=== PATIENT | female | born 1970 | race Caucasian/White ===

== ENCOUNTER 2018-05-10 09:46 | Emergency (ER) | payer MEDICAID ==
[~2018-05-10] VITALS: Ht 177.8 cm; Wt 77.6 kg
[~2018-05-10 09:46] MED LIST: ATIVAN1 MG PO; BUSPAR 5 MG TABL5 M1 PO; CLARITIN10 MG PO; CLONAZEPAM 1 MG1 M1; CLONAZEPAM 1 MG1 M1 PO; FENTANYL PATCH75 MCG TP; HYDROCORTISONE3011 TP; KEFLEX500 MG PO; MORPHINE SULFAT10 M1 IJ; MORPHINE SULFAT15 M1 PO; NASONEX17 GM NASAL; NORCO 5-325 TA1 EACH PO; TIZANIDINE HCL2 M1 PO; TRILEPTAL 300300 MG PO; VALIUM2 MG PO; ZANAFLEX2 M2 PO
[2018-05-10] MEDS ORDERED: NORCO 5-325 TA1 EACH PO (10:04)
[2018-05-10] MEDS ORDERED: NUCYNTA75 MG PO (10:16)
[2018-05-10] MEDS ORDERED: TOPROL XL25 MG PO (10:17)
[2018-05-10 10:26] LABS: URINE BILIRUBIN NEGATIVE (Negative); URINE BLOOD NEGATIVE (Negative); URINE CLARITY CLEAR; URINE COLOR YELLOW; URINE GLUCOSE-RANDOM* NEGATIVE (Negative); URINE KETONES NEGATIVE (Negative); URINE LEUKOCYTES-REFLEX NEGATIVE (Negative); URINE NITRITE-REFLEX NEGATIVE (Negative); URINE PROTEIN (DIPSTICK) NEGATIVE (Negative); URINE SPECIFIC GRAVITY 1.015 (1.005-1.035); URINE UROBILINOGEN 0.2 E.U./dl (0.2-1.0)
[2018-05-10 11:09] VITALS: BP 129/81
== END 2018-05-10 11:09 | disposition home or self-care (01) ==
LOC: ER 09:46
PROVIDERS: Emergency Medicine
DX: G62.9 Polyneuropathy, unspecified (principal); F41.9 Anxiety disorder, unspecified; I10 Essential (primary) hypertension; Z90.89 Acquired absence of other organs

== ENCOUNTER 2018-08-04 18:41 | Emergency (ER) | payer MEDICAID ==
[~2018-08-04] VITALS: Ht 177.8 cm; Wt 133.8 kg
[~2018-08-04 18:41] MED LIST changes: +NUCYNTA75 MG PO; +TOPROL XL25 MG PO
[2018-08-04 20:38] VITALS: BP 171/97
== END 2018-08-04 20:39 | disposition home or self-care (01) ==
LOC: ER 18:41
DX: G90.521 Complex regional pain syndrome I of right lower limb (principal); M79.671 Pain in right foot; G62.9 Polyneuropathy, unspecified; Z98.890 Other specified postprocedural states

== ENCOUNTER 2018-08-30 11:44 | Emergency (ER) | payer MEDICAID ==
[~2018-08-30] VITALS: Ht 177.8 cm; Wt 90.7 kg
[2018-08-30 11:55] VITALS: BP 116/86
[2018-08-30] MEDS ORDERED: NORCO 10-325 T1 EACH PO (12:38)
== END 2018-08-30 12:43 | disposition home or self-care (01) ==
LOC: ER 11:44
DX: G89.29 Other chronic pain (principal); M79.671 Pain in right foot; M79.672 Pain in left foot; G62.9 Polyneuropathy, unspecified; F41.9 Anxiety disorder, unspecified; Z98.890 Other specified postprocedural states

== ENCOUNTER 2018-11-15 22:09 | Emergency (ER) | payer MEDICAID ==
[~2018-11-15] VITALS: Ht 177.8 cm; Wt 116.1 kg
[~2018-11-15 22:09] MED LIST changes: +NORCO 10-325 T1 EACH PO
[2018-11-15] MEDS ORDERED: MOBIC15 MG PO (22:54)
[2018-11-15 23:12] VITALS: BP 107/72
== END 2018-11-15 23:15 | disposition home or self-care (01) ==
LOC: ER 22:09
DX: F11.99 Opioid use, unspecified with unspecified opioid-induced disorder (principal); M79.671 Pain in right foot; M79.672 Pain in left foot; Z76.0 Encounter for issue of repeat prescription; F41.9 Anxiety disorder, unspecified; Z88.8 Allergy status to other drugs, medicaments and biological substances; Z90.89 Acquired absence of other organs

== ENCOUNTER 2018-11-28 16:27 | Emergency (ER) | payer MEDICAID ==
[~2018-11-28] VITALS: Ht 177.8 cm; Wt 116.1 kg
[~2018-11-28 16:27] MED LIST changes: +MOBIC15 MG PO
[2018-11-28 16:45] VITALS: BP 122/79
[2018-11-28] MEDS ORDERED: CYMBALTA20 MG PO (17:45)
[2018-11-28] MEDS ORDERED: VALIUM5 MG PO (17:52)
[2018-11-28] MEDS ORDERED: XANAX 0.5 MG0.5 MG PO (17:52)
[2018-11-28] MEDS ORDERED: LIPITOR 20 MG T20 M1 PO (17:53)
[2018-11-28] MEDS ORDERED: NORCO 5-325 TA1 EAC1 PO (17:54)
== END 2018-11-28 18:05 | disposition home or self-care (01) ==
LOC: ER 16:27
DX: M79.671 Pain in right foot (principal); M79.672 Pain in left foot; F41.9 Anxiety disorder, unspecified; Z88.8 Allergy status to other drugs, medicaments and biological substances; Z90.89 Acquired absence of other organs

== ENCOUNTER 2018-12-23 22:13 | Emergency (ER) | payer MEDICAID ==
[~2018-12-23] VITALS: Ht 177.8 cm; Wt 77.1 kg
[~2018-12-23 22:13] MED LIST changes: +CYMBALTA20 MG PO; +LIPITOR 20 MG T20 M1 PO; +NORCO 5-325 TA1 EAC1 PO; +VALIUM5 MG PO; +XANAX 0.5 MG0.5 MG PO
[2018-12-23 22:25] VITALS: BP 151/70
[2018-12-23] MEDS ORDERED: LIORESAL 10 MG10 MG PO (22:39)
[2018-12-23] MEDS ORDERED: NORCO 5-325 TA1 EAC1 PO (23:12)
== END 2018-12-23 23:53 | disposition home or self-care (01) ==
LOC: ER 22:13
DX: G57.93 Unspecified mononeuropathy of bilateral lower limbs (principal); F41.9 Anxiety disorder, unspecified; Z90.49 Acquired absence of other specified parts of digestive tract; Z88.8 Allergy status to other drugs, medicaments and biological substances